=== PATIENT | female | born 1970 | race Caucasian/White ===

== ENCOUNTER 2018-02-06 18:11 | Emergency (ER) | payer OTHER ==
--- NOTE | 2018-02-06 18:32 | PDOC ---
Rapid Medical Evaluation Chief Complaint: Pain Time Seen by Provider: 02/06/18 18:31 Medical Evaluation: Allergies Allergy/AdvReac Type Severity Reaction Status Date / Time No Known Allergies Allergy Verified 02/06/18 18:29 02/06/18 18:31 The patient presents with a chief complaint of: abd pain I have performed a brief in-person evaluation of this patient. Pertinent physical exam findings: vss, I have ordered the following: labs The patient will proceed to the ED for further evaluation.
[2018-02-06 18:33] VITALS: TEMP 98.4; BMI 23.8
--- NOTE | 2018-02-06 19:25 | PDOC ---
History of Present Illness - General Chief Complaint: Pain Stated Complaint: ABD PAIN Time Seen by Provider: 02/06/18 18:31 - History of Present Illness Initial Comments: 02/06/18 20:16 The patient is a 47 year old female with a history of HTN and Kidney stones who presents for evaluation of abdominal pain, nausea, vomiting. The patient notes a 3 day history of worsening burning epigastric and RUQ abdominal pain with associated nausea and several episodes non-bilious, non-bloody vomiting. She notes that her nausea and vomiting have improved, but she has had persistent abdominal pain prompting her presentation to the ED for further evaluation. She otherwise denies fevers, chills, SOB, chest pain, or changes with urination or bowel movements. The patient is status post cholecystectomy and appendectomy. Past History - Past Medical History Allergies/Adverse Reactions: Allergies Allergy/AdvReac Type Severity Reaction Status Date / Time No Known Allergies Allergy Verified 02/06/18 18:29 Home Medications: Ambulatory Orders Losartan/Hydrochlorothiazide [Losartan-Hctz 50-12.5 mg Tab] 1 each PO DAILY 11/12 COPD: No HTN: Yes Kidney Stones: Yes - Surgical History Abdominal Surgery: Yes (OVARIAN CYST) Appendectomy: Yes Cholecystectomy: Yes Neurologic Surgery: Yes (BRAIN ANEURYSM) - Immunization History Immunization Up to Date: Yes - Suicide/Smoking/Psychosocial Hx Smoking History: Never smoked Have you smoked in the past 12 months: No Hx Alcohol Use: No Drug/Substance Use Hx: No Substance Use Type: None Review of Systems - Review of Systems Comments:: 02/06/18 20:19 Constitutional: No fevers, chills, fatigue, malaise HEENT: No Rhinorrhea, nasal congestion, visual changes Cardiovascular: No chest pain, syncope, palpitations, lightheadedness Respiratory: No Cough, SOB, Hemoptysis, Gastrointestinal: Abdominal pain, nausea, vomiting. No Constipation, Diarrhea, Melena Genitourinary: No Dysuria, Frequency, Urgency, Hesitancy, Hematuria, Flank pain Musculoskeletal: No Myalgia, arthralgia Skin: No rashes, itching, bruising, pallor Neurologic: No Headache, Dizziness, Numbness, Weakness, or Tingling Psychiatric: No Hallucinations. No SI or HI *Physical Exam - Vital Signs Last Vital Signs Temp Pulse Resp BP Pulse Ox 98.4 F 68 18 128/83 99 02/06/18 18:29 02/06/18 18:29 02/06/18 18:29 02/06/18 18:29 02/06/18 18:29 - Physical Exam Comments: 02/06/18 20:20 General Appearance: Nourished. No Apparent Distress HEENT: No Pharyngeal Erythema, Tonsillar Exudate, Tonsillar Erythema Neck: No Cervical Lymphadenopathy Respiratory/Chest: Lungs Clear, Normal Breath Sounds. No Crackles, Rales, Rhonchi, Wheezing Cardiovascular: Regular Rhythm, Regular Rate. No Murmur, Gallops, Rubs Gastrointestinal/Abdominal: Normal Bowel Sounds, Soft. Mild epigastric and suprapubic discomfort with palpation on exam. No Guarding, Rebound, Musculoskeletal: No CVA Tenderness Extremity: Normal Capillary Refill Integumentary: Normal Color, Dry, Warm Neurologic: Fully Oriented, Alert, Normal Mood/Affect, Normal Response, Heart Score/ECG Review #1 ECG reviewed & interpreted by me at: 21:22 General ECG Interpretation: Sinus Rhythm, Normal Rate, Normal Intervals, No acute ischemic changes ED Treatment Course - LABORATORY CBC & Chemistry Diagram: 02/06/18 20:00 02/06/18 20:00 Medical Decision Making - Medical Decision Making 02/06/18 20:21 The patient is a 47 year old female with a history of HTN and Kidney stones who presents for evaluation of abdominal pain, nausea, vomiting. Differential includes but is not limited to: Gastritis, Pancreatitis, ACS, UTI, Infectious, metabolic derangement. Given the patient's history and physical exam, it is likely the patient's symptoms are due to a gastritis. It is unlikely that the patient's symptoms are due to gallbladder pathology as the patient is post cholecystectomy and appendectomy. However, we will obtain a cbc, cmp, troponin , lipase, UA, urine preg, ekg, chest plain film to evaluate further. We will treat with iv fluids, pepcid, zofran, maalox and continue to monitor and reassess. 02/07/18 05:55 CBC, cmp, troponin, lipase, ua are unremarkable. Chest plain film is unremarkable. The patient reports some improvement in her symptoms. We are comfortable discharging the patient home with primary care provider and GI follow up. We discussed the results, plan, and return precautions with the patient who voiced understanding and is agreeable with the plan. *DC/Admit/Observation/Transfer Diagnosis at time of Disposition: Abdominal pain Qualifiers: Abdominal location: unspecified location Qualified Code(s): R10.9 - Unspecified abdominal pain - Discharge Dispostion Disposition: HOME Condition at time of disposition: Stable Decision to Admit order: No - Referrals Referrals: Wood Tadeo MD [Staff Physician] - - Patient Instructions Printed Discharge Instructions: DI for Abdominal Pain-Adult Additional Instructions: Please return to the ER if you experience concerning or worsening symptoms including worsening abdominal pain, vomiting, or fevers. Your lab results were normal here in the ER. Please call to schedule a follow up appointment with your primary care provider and our GI specialist within 2-3 days to discuss your ER visit and further management of your symptoms. - Post Discharge Activity
[2018-02-06] MEDS ORDERED: FAMOTIDINE 20 MG/50 ML IVPB 20 MG/50 ML MG IVPB ONE ×2 (19:35→20:24)
[2018-02-06] MEDS ORDERED: MAG HYDROX/AL HYDROX/SIMETH 30 ML UNIT-DOSE CUP PO ONE (19:35)
[2018-02-06] MEDS ORDERED: ONDANSETRON 4 MG/2 ML VIAL IVPUSH ONE (19:35)
[2018-02-06] MEDS ORDERED: SODIUM CHLORIDE 1,000 ML IV STA (19:35)
[2018-02-06 20:18] LABS: BASO % 1.1 % (0-2.0); EOS % 3.4 % (0-4.5); HEMATOCRIT 40.2 % (32.4-45.2); HEMOGLOBIN 13.1 GM/dL (10.7-15.3); LYMPH % 36.6 % (8-40); MCHC 32.6 g/dl (32.0-36.0); MEAN PLT VOLUME 9.7 fl (7.5-11.1); MONO % 8.5 % (3.8-10.2); NEUT % 50.4 % (42.8-82.8); PLATELET COUNT 230 K/MM3 (134-434); RBC 4.37 M/mm3 (3.60-5.2); RDW 12.9 % (11.6-15.6)
[2018-02-06] MEDS ORDERED: MAG HYDROX/AL HYDROX/SIMETH 30 ML UNIT-DOSE CUP ONE (20:24)
[2018-02-06] MEDS ORDERED: ONDANSETRON 4 MG/2 ML VIAL ONE (20:24)
[2018-02-06 20:43] LABS: ALBUMIN 3.6 g/dl (3.4-5.0); ALK PHOS 40 U/L (45-117); ANION GAP 6 MMOL/L (8-16); BILIRUBIN,TOTAL 0.2 mg/dL (0.2-1); BLOOD UREA NITROGEN 11 mg/dL (7-18); CALCIUM 9.7 mg/dL (8.5-10.1); CHLORIDE 108 mmol/L (98-107); CO2 26 mmol/L (21-32); CREATININE 0.9 mg/dL (0.55-1.3); GLUCOSE,RANDOM 69 mg/dL (74-106); LIPASE 261 U/L (73-393); POTASSIUM 4.6 mmol/L (3.5-5.1); SGOT/AST 11 U/L (15-37); SGPT/ALT 17 U/L (13-61); SODIUM 140 mmol/L (136-145); TOT PROT 7.6 g/dl (6.4-8.2)
--- NOTE | 2018-02-06 21:33 | PDOC ---
Attending Attestation - Resident Resident Name: Kanu Blue - ED Attending Attestation I have performed the following: I have examined & evaluated the patient, The case was reviewed & discussed with the resident, I agree w/resident's findings & plan, Exceptions are as noted - HPI HPI: 02/06/18 21:31 The patient is a 47 year old female, with a past medical history of HTN and kidney stones, who presents to the emergency department with 3 days of abdominal pain with associated nausea and vomiting. Patient describes her abdominal pain as a burning sensation, localized to the epigastrum. She denies recent fevers, chills, headache or dizziness. She denies recent diarrhea or constipation. She denies recent dysuria, frequency, urgency or hematuria. She denies recent chest pain or shortness of breath. Allergies: NKDA Past surgical history: Cholecystectomy, appendectomy, Ovarian cyst, brain aneurysm Social history: Nonsmoker. Denies EtOH use and recreational drug use. - Physicial Exam PE: 02/06/18 21:32 "GENERAL: Awake, alert, and fully oriented, in no acute distress. HEAD: No signs of trauma EYES: PERRLA, EOMI, sclera anicteric, conjunctiva clear ENT: Auricles normal inspection, hearing grossly normal, nares patent, oropharynx clear without exudates. Moist mucosa NECK: Nontender, no stepoffs, Normal ROM, supple, no lymphadenopathy, JVD, or masses LUNGS: Breath sounds equal, clear to auscultation bilaterally. No wheezes, and no crackles HEART: Regular rate and rhythm, normal S1 and S2, no murmurs, rubs or gallops ABDOMEN: + epigastric TTP, normoactive bowel sounds. No guarding, no rebound. No masses EXTREMITIES: Normal range of motion, no edema. No clubbing or cyanosis. No cords, erythema, or tenderness NEUROLOGICAL: Cranial nerves II through XII intact. 5/5 strength and sensation in all extremities, Normal speech, normal gait, normal cerebellar function SKIN: Warm, Dry, normal turgor, no rashes or lesions noted. - Medical Decision Making 02/06/18 21:32 47 F with epigastric pain. Suspect gastritis vs PUD. Pt with prior cholecystectomy. ACS very unlikely as pt is young with few risk factors but will r/o with trop and EKG. - Labs, UA, UPT - CXR - IVF, GI cocktail 02/06/18 23:52 Labs wnl CXR clear on my read Pt reassessed - now with resolution of pain s/p meds Pt is well appearing, with normal vitals. Clinically stable for DC at this time. I discussed the physical exam findings, ancillary test results and final diagnoses with the patient. I answered all of the patient's questions. The patient was satisfied with the care received and felt comfortable with the discharge plan and treatment plan. The patient agrees to follow up with the primary care physician within 24-72 hours.
[2018-02-06 22:05] LABS: URINE APPEARANCE CLEAR; URINE BILIRUBIN NEGATIVE (<2.0 mg/dL); URINE COLOR LTYELLOW; URINE GLUCOSE (UA) NEGATIVE (NEGATIVE); URINE KETONE NEGATIVE (NEGATIVE); URINE LEUK ESTERASE NEGATIVE (NEGATIVE); URINE NITRITE NEGATIVE (NEGATIVE); URINE PROTEIN NEGATIVE (NEGATIVE); URINE UROBILINOGEN NEGATIVE mg/dL (0.2-1.0)
[2018-02-06 22:06] LABS: HCG,QUALITATIVE URINE Negative
[2018-02-06 22:11] LABS: EPI CELLS RARE /HPF (FEW); URINE MUCUS RARE
[2018-02-06 22:55] VITALS: BP 126/68; PULSE 72
--- NOTE | 2018-02-07 09:52 | EKG ---
Test Reason : Blood Pressure : / mmHG Vent. Rate : 050 BPM Atrial Rate : 050 BPM P-R Int : 132 ms QRS Dur : 080 ms QT Int : 432 ms P-R-T Axes : 013 015 028 degrees QTc Int : 393 ms SINUS BRADYCARDIA OTHERWISE NORMAL ECG NO PREVIOUS ECGS AVAILABLE Confirmed by SHANTI FUNES, CHERYL ([id number]) on 02/07/2018 9:52:17 AM Referred By: Confirmed By:CHERYL MOSER MD
== END 2018-02-06 22:55 | disposition home or self-care (01) ==
LOC: JER 18:11
PROC: 3E033GC Introduction of Other Therapeutic Substance into Peripheral Vein, Percutaneous Approach (ICD-10-PCS; principal; 2018-02-06)
PROC: 3E033GC Introduction of Other Therapeutic Substance into Peripheral Vein, Percutaneous Approach (ICD-10-PCS; 2018-02-06)
DX: R10.9 Unspecified abdominal pain (principal); I10 Essential (primary) hypertension; Z87.442 Personal history of urinary calculi; Z90.49 Acquired absence of other specified parts of digestive tract
CPT/HCPCS: 36415; 71046-TC-FY; 80053; 81003; 81015; 82550; 83690; 84484; 84703; 85025; 93005; 93010; 99283-25; J7030

== ENCOUNTER 2021-12-13 16:13 | Inpatient (IN) | payer OTHER ==
[2021-12-13] MEDS ORDERED: ONDANSETRON 4 MG/2 ML VIAL IVPUSH ONE (19:44)
[2021-12-13] MEDS ORDERED: SODIUM CHLORIDE 0.9% 500 ML INFUS.BAG IV ONE (19:44)
[2021-12-13] MEDS ORDERED: ACETAMINOPHEN 1000 MG/100 ML BAG IVPB ONE (19:44)
[2021-12-13] MEDS ORDERED: ACETAMINOPHEN INJECTION 100 ML IVPB ONE (20:14)
[2021-12-13] MEDS ORDERED: ONDANSETRON 4 MG/2 ML VIAL ONE (20:14)
[2021-12-13 21:20] LABS: BASO % 0.6 % (0-2.0); EOS % 0.1 % (0-4.5); HEMATOCRIT 38.5 % (32.4-45.2); LYMPH % 16.2 % (8-40); MCH 30.8 pg (25.7-33.7); MCHC 33.8 g/dl (32.0-36.0); MEAN CELL VOLUME 91.1 fl (80-96); MEAN PLT VOLUME 9.7 fl (7.5-11.1); MONO % 5.1 % (3.8-10.2); PLATELET COUNT 183 10^3/uL (134-434); RBC 4.22 M/mm3 (3.60-5.2); RDW 13.3 % (11.6-15.6); WHITE BLOOD COUNT 10.8 K/mm3 (4.0-10.0)
[2021-12-13 21:23] LABS: EPI CELLS >36 /uL (0-25.1); HYALINE CASTS 10 /uL (0-3.1); PH,URINE 5.5 (5.0-8.0); URINE APPEARANCE CLOUDY; URINE BACTERIA 3157 /uL (0-1359); URINE BILIRUBIN NEGATIVE (NEGATIVE); URINE COLOR YELLOW; URINE GLUCOSE (UA) NEGATIVE (NEGATIVE); URINE KETONE 2+ (NEGATIVE); URINE LEUK ESTERASE NEGATIVE (NEGATIVE); URINE NITRITE NEGATIVE (NEGATIVE); URINE PROTEIN TRACE (NEGATIVE); URINE RBC 23 /uL (0-23.9); URINE UROBILINOGEN 0.2 mg/dL (0.2-1.0)
[2021-12-13 21:42] LABS: ALBUMIN 3.4 g/dl (3.4-5.0); BLOOD UREA NITROGEN 14.6 mg/dL (7-18); CALCIUM 8.9 mg/dL (8.5-10.1)
[2021-12-13 21:43] LABS: URINE WBC 60 /uL (0-25.8)
[2021-12-13 21:47] LABS: BILIRUBIN,TOTAL 0.3 mg/dL (0.2-1); TOT PROT 7.3 g/dl (6.4-8.2)
[2021-12-13] MEDS ORDERED: CEFTRIAXONE 1 GM in DEXTROSE 5%-WATER - 50 ML IVPB ONE (23:39)
[2021-12-14] MEDS ORDERED: CEFTRIAXONE 1 GM/50 ML BAG ONE (00:24)
[2021-12-14] MEDS ORDERED: morphine CARPU-JECT 2 MG/1 ML DISP.SYRIN IVPUSH ONE (00:38)
[2021-12-14] MEDS ORDERED: SODIUM CHLORIDE 1,000 ML IV SCH ×2 (05:00)
[2021-12-14 06:47] LABS: HEMATOCRIT 35.2 % (32.4-45.2); HEMOGLOBIN 12.1 GM/dL (10.7-15.3); MCH 30.7 pg (25.7-33.7); MCHC 34.4 g/dl (32.0-36.0); MEAN CELL VOLUME 89.3 fl (80-96); MEAN PLT VOLUME 9.6 fl (7.5-11.1); PLATELET COUNT 166 10^3/uL (134-434); RBC 3.94 M/mm3 (3.60-5.2); RDW 13.2 % (11.6-15.6); WHITE BLOOD COUNT 11.1 K/mm3 (4.0-10.0)
[2021-12-14 07:10] LABS: CALCIUM 8.2 mg/dL (8.5-10.1)
[2021-12-14 07:11] LABS: BLOOD UREA NITROGEN 12.4 mg/dL (7-18)
[2021-12-14 07:14] LABS: CREATININE 0.9 mg/dL (0.55-1.3); PHOSPHOROUS 2.2 mg/dL (2.5-4.9)
[2021-12-14 07:15] LABS: BILIRUBIN,TOTAL 0.3 mg/dL (0.2-1); TOT PROT 6.7 g/dl (6.4-8.2)
[2021-12-14] MEDS: ACETAMINOPHEN 1000 MG/100 ML BAG IVPB PRN ×2 (08:26→20:42)
[2021-12-14] MEDS: ENOXAPARIN NA (PORCINE) 40 MG/0.4 ML DISP.SYRIN SQ SCH (09:36)
[2021-12-14] MEDS: CEFTRIAXONE 1 GM in DEXTROSE 5%-WATER - 50 ML IVPB SCH (09:36)
[2021-12-14] MEDS ORDERED: HYDROCHLOROTHIAZIDE 12.5 MG CAPSULE (FP) PO SCH (10:00)
[2021-12-14] MEDS: LOSARTAN POTASSIUM 25 MG TABLET PO SCH (11:27)
[2021-12-14 13:11] VITALS: BMI 24.2
[2021-12-14] MEDS ORDERED: SODIUM PHOSPHATE - 30 MM in SODIUM CHLORIDE 500 ML IVPB ONE (14:17)
[2021-12-14] MEDS: SODIUM CHLORIDE 1,000 ML IV SCH (15:27)
[2021-12-14] MEDS ORDERED: NAPH,MB-DB/K PH,MBDB POWDER PACKET PO ONE (16:54)
[2021-12-15] MEDS: SODIUM CHLORIDE 1,000 ML IV SCH ×3 (06:32→17:07)
[2021-12-15 08:41] LABS: BASO % 0.7 % (0-2.0); EOS % 1.8 % (0-4.5); HEMATOCRIT 34.7 % (32.4-45.2); HEMOGLOBIN 12.1 GM/dL (10.7-15.3); MCH 31.4 pg (25.7-33.7); MCHC 34.9 g/dl (32.0-36.0); MEAN CELL VOLUME 89.9 fl (80-96); MEAN PLT VOLUME 9.5 fl (7.5-11.1); MONO % 11.5 % (3.8-10.2); PLATELET COUNT 163 10^3/uL (134-434); RBC 3.86 M/mm3 (3.60-5.2); RDW 13.2 % (11.6-15.6); WHITE BLOOD COUNT 6.8 K/mm3 (4.0-10.0)
[2021-12-15 09:19] LABS: ALBUMIN 3.1 g/dl (3.4-5.0); CALCIUM 7.9 mg/dL (8.5-10.1)
[2021-12-15 09:20] LABS: BLOOD UREA NITROGEN 9.2 mg/dL (7-18); MAGNESIUM 2.1 mg/dL (1.8-2.4)
[2021-12-15 09:22] LABS: CREATININE 0.8 mg/dL (0.55-1.3); PHOSPHOROUS 2.1 mg/dL (2.5-4.9)
[2021-12-15 09:23] LABS: BILIRUBIN,TOTAL 0.6 mg/dL (0.2-1); TOT PROT 6.8 g/dl (6.4-8.2)
[2021-12-15] MEDS: LOSARTAN POTASSIUM 25 MG TABLET PO SCH (09:45)
[2021-12-15] MEDS: CEFTRIAXONE 1 GM in DEXTROSE 5%-WATER - 50 ML IVPB SCH (09:45)
[2021-12-15] MEDS: ENOXAPARIN NA (PORCINE) 40 MG/0.4 ML DISP.SYRIN SQ SCH (09:46)
[2021-12-15] MEDS ORDERED: NAPH,MB-DB/K PH,MBDB POWDER PACKET PO ONE ×2 (15:38→16:30)
[2021-12-15] MEDS: ACETAMINOPHEN 325 MG TABLET (FP) PO PRN (16:31)
[2021-12-15] MEDS ORDERED: ONDANSETRON 4 MG/2 ML VIAL IVPUSH ONE (20:58)
[2021-12-15] MEDS: ETHINYL ESTRADIOL PO SCH (21:21)
[2021-12-15] MEDS: [UNRECOGNIZED DRUG - OTHER] PO SCH (21:21)
[2021-12-15] MEDS: FERROUS FUMARATE PO SCH (21:21)
[2021-12-15] MEDS: NORETHINDRONE ACETATE PO SCH (21:21)
[2021-12-16] MEDS: SODIUM CHLORIDE 1,000 ML IV SCH (01:54)
[2021-12-16] MEDS: ACETAMINOPHEN 325 MG TABLET (FP) PO PRN (01:55)
[2021-12-16 07:36] LABS: CALCIUM 7.6 mg/dL (8.5-10.1)
[2021-12-16 07:37] LABS: ALBUMIN 2.7 g/dl (3.4-5.0); BLOOD UREA NITROGEN 4.6 mg/dL (7-18); MAGNESIUM 1.9 mg/dL (1.8-2.4)
[2021-12-16 07:39] LABS: PHOSPHOROUS 1.8 mg/dL (2.5-4.9)
[2021-12-16 07:41] LABS: BILIRUBIN,TOTAL 0.4 mg/dL (0.2-1); TOT PROT 5.8 g/dl (6.4-8.2)
[2021-12-16 07:43] LABS: CREATININE 0.7 mg/dL (0.55-1.3)
[2021-12-16 08:06] LABS: BASO % 0.7 % (0-2.0); EOS % 3.3 % (0-4.5); HEMATOCRIT 32.3 % (32.4-45.2); HEMOGLOBIN 11.3 GM/dL (10.7-15.3); MCH 30.9 pg (25.7-33.7); MEAN CELL VOLUME 88.4 fl (80-96); MEAN PLT VOLUME 9.9 fl (7.5-11.1); MONO % 12.6 % (3.8-10.2); NEUT % 44.4 % (42.8-82.8); PLATELET COUNT 170 10^3/uL (134-434); RBC 3.65 M/mm3 (3.60-5.2); RDW 13.1 % (11.6-15.6); WHITE BLOOD COUNT 5.6 K/mm3 (4.0-10.0)
[2021-12-16] MEDS: CEFTRIAXONE 1 GM in DEXTROSE 5%-WATER - 50 ML IVPB SCH (09:43)
[2021-12-16] MEDS: LOSARTAN POTASSIUM 25 MG TABLET PO SCH (09:43)
[2021-12-16] MEDS: ENOXAPARIN NA (PORCINE) 40 MG/0.4 ML DISP.SYRIN SQ SCH (09:43)
[2021-12-16 11:42] VITALS: TEMP 97.8
[2021-12-16 14:13] VITALS: BP 133/81; PULSE 53; RESP 20
[2021-12-16] MEDS: NORETHINDRONE ACETATE PO SCH (16:17)
[2021-12-16] MEDS: FERROUS FUMARATE PO SCH (16:17)
[2021-12-16] MEDS: ETHINYL ESTRADIOL PO SCH (16:17)
[2021-12-16] MEDS: [UNRECOGNIZED DRUG - OTHER] PO SCH (16:17)
[2021-12-16] MEDS ORDERED: NORETHINDRONE ACETATE PO SCH (20:00)
[2021-12-16] MEDS ORDERED: ETHINYL ESTRADIOL PO SCH (20:00)
[2021-12-16] MEDS ORDERED: [UNRECOGNIZED DRUG - OTHER] PO SCH (20:00)
== END 2021-12-16 17:30 | disposition home or self-care (01) | DRG 392 ==
LOC: JER 16:13 → JERBED 12-14 00:16 → J7W 12-14 09:15
PROVIDERS: ADMIT Internal Medicine; ATTEND Internal Medicine
DX: K52.9 Noninfective gastroenteritis and colitis, unspecified (principal); I10 Essential (primary) hypertension; E83.39 Other disorders of phosphorus metabolism
CPT/HCPCS: 36415; 74177-TC; 80053; 81003; 83690; 83735; 84100; 84484; 84703; 85025; 85027; 87045; 87046; 87086; 87186; 87209; 93005; 93010; 99285-25; C9803-CS; Q9967; U0003; U0005